=== PATIENT | female | born 1935 | race African-American/Black ===

== ENCOUNTER 2019-07-14 07:51 | Day surgery (SDC) | payer MEDICARE, MEDICAID ==
[2019-07-14] VITALS (8 sets, daily range): BP systolic 137–162; BP diastolic 63–78
[~2019-07-14] VITALS: Ht 167.6 cm; Wt 63.0 kg
[~2019-07-14 07:51] MED LIST: ACYCLOVIR200 MG/5 M ORAL; AMBIEN10 MG ORAL; CELLCEPT500 MG ORAL; NORVASC10 MG ORAL; ORENCIA IV; PRILOSEC OTC20 MG ORAL; TYLENOL EXTRA500 MG ORAL; XALATAN2.5 ML RIGHT EYE
[2019-07-14] MEDS ORDERED: LR 1000ml 1,000 ML IVLG SCH ×2 (09:00→09:25)
--- NOTE | 2019-07-14 09:28 | Anethesia Preoperative Eval ---
Anesthesia Pre-op PMH/ROS General Date of Evaluation: Jul 14, 2019 Time of Evaluation: 09:26 Anesthesiologist: josé miguel ASA Score: ASA 4 Mallampati Score Class I : Soft palate, uvula, fauces, pillars visible Class II: Soft palate, uvula, fauces visible Class III: Soft palate, base of uvula visible Class IV: Only hard plate visible Mallampati Classification: Class II Surgeon: sadiq Diagnosis: blood in stool, anemia Surgical Procedure: egd/colonoscopy Anesthesia History: none Family History: no anesthesia problems Allergies: Coded Allergies: No Known Allergies (Unverified , 07/12/19) Medications: see eMAR Patient NPO?: Yes Past Medical History Cardiovascular: Reports: HTN, other - syncope Pulmonary: Reports: asthma Gastrointestinal/Genitourinary: Reports: GERD, other - blood in stool HEENT: Reports: cataract (L), cataract (R), glaucoma, CHILKAT (L), CHILKAT (R) Hematology/Immune: Reports: anemia Musculoskeletal/Integumentary: Reports: OA - arthritic changes bilateral hands , other - bone cancer Anesthesia Pre-op Phys. Exam Physician Exam Last Vital Signs Date Time Temp Pulse Resp B/P (MAP) Pulse Ox O2 Delivery O2 Flow Rate FiO2 07/14/19 08:25 Room Air 07/14/19 08:20 96.7 65 18 137/65 98 Constitutional: NAD Neurologic: CN 2-12 intact Cardiovascular: RRR Respiratory: CTA Gastrointestinal: S/NT/ND Airway Exam Mallampati Score: Class II MO: limited Neck: flexible TMD: 2fb ROM: limited Anesthesia Pre-op A/P Risk Assessment & Plan Assessment: asa4 Plan: mac Status Change Before Surgery: No Pre-Antibiotics Drug: Renetta Edmond MD Jul 14, 2019 09:28
[2019-07-14] MEDS ORDERED: fentaNYL 100 mcg/2 mL IV PRN (09:30)
[2019-07-14] MEDS ORDERED: DiphenhydrAMINE 50mg/ml Inj IVP PRN (09:30)
[2019-07-14] MEDS ORDERED: Lidocaine 1% MPF 10mg/ml 5ml ONE (09:30)
[2019-07-14] MEDS ORDERED: Midazolam 2mg/2ml Inj IVP PRN (09:30)
[2019-07-14] MEDS ORDERED: Atropine Inj 1mg/10ml Syr IV PRN (09:30)
[2019-07-14] MEDS ORDERED: LR 1000ml ONE (09:30)
--- NOTE | 2019-07-14 10:08 | Short Stay Surgery H&P ---
History of Present Illness History of Present Illness Chief Complaint see typed note HPI Inessa Reese is a 84 year old female who was admitted on for Blood In Stool Patient History Allergies: Coded Allergies: No Known Allergies (Unverified , 07/12/19) Medication History Scheduled Acyclovir (Acyclovir), 200 MG ORAL BID, (Reported) Amlodipine Besylate (Norvasc), 10 MG ORAL DAILY, (Reported) Latanoprost* (Xalatan*), 1 DROP RIGHT EYE BEDTIME, (Reported) Mycophenolate Mofetil (Cellcept), 2,000 MG ORAL DAILY, (Reported) Omeprazole Magnesium (Prilosec Otc), 40 MG ORAL DAILY, (Reported) Orencia (Orencia 250 mg Vial), 750 MG IV ONCE, (Reported) Scheduled PRN Acetaminophen* (Tylenol Extra Strength*), 500 MG ORAL Q8H PRN for Prn Headache/ Temp > 101, (Reported) Zolpidem Tartrate* (Ambien*), 10 MG ORAL BEDTIME PRN for Insomnia, (Reported) Physical Exam Vital Signs Last Vital Signs Date Time Temp Pulse Resp B/P (MAP) Pulse Ox O2 Delivery O2 Flow Rate FiO2 07/14/19 08:25 Room Air 07/14/19 08:20 96.7 65 18 137/65 98 Plan Attestation Are the patient's medical conditions optimized for surgery? Juan Forbes MD Jul 14, 2019 10:08
--- NOTE | 2019-07-14 10:08 | Pre-Procedure Note/Attestation ---
Pre-Procedure Note/Attestation Complete Prior to Procedure Planned Procedure: not applicable Procedure Narrative: esophagogastroduodenoscopy colon Indications for Procedure Pre-Operative Diagnosis: heme (+) Attestation I attest that I discussed the nature of the procedure; its benefits; risks and complications; and alternatives (and the risks and benefits of such alternatives ), prior to the procedure, with the patient (or the patient's legal livestock sales representative). I attest that, if there was a reasonable possibility of needing a blood transfusion, the patient (or the patient's legal livestock sales representative) was given the [facility] standardized written summary, pursuant to the Arturo Marcelle Blood Safety Act ([place] Health and Safety Code # 1645, as amended). I attest that I re-evaluated the patient just prior to the surgery and that there has been no change in the patient's H&P, except as documented below: Juan Forbes MD Jul 14, 2019 10:08
--- NOTE | 2019-07-14 11:11 | Immediate Post-Op Evaluation ---
Immediate Post-Op Evalulation Immediate Post-Op Evalulation Procedure: egd/colonoscopy w/bx Date of Evaluation: Jul 14, 2019 Time of Evaluation: 11:10 IV Fluids: 650ml lr Blood Products: none Estimated Blood Loss: negligible Blood Pressure Systolic: 153 Blood Pressure Diastolic: 78 Pulse Rate: 68 Respiratory Rate: 18 O2 Sat by Pulse Oximetry: 100 Temperature (Fahrenheit): 96.7 Pain Score (1-10): 0 Nausea: No Vomiting: No Complications patient complain of chest pain upon arrival to pacu. 12 lead ecg obtained. no acute changes appreciated. chest pain resolved Patient Status: awake, reacts, patent Hydration Status: adequate Drug: Renetta Edmond MD Jul 14, 2019 11:11
--- NOTE | 2019-07-14 11:13 | 48 Hour Post Anesthesia Eval ---
Post Anesthesia Evaluation Procedure: egd/colonoscopy w/bx Date of Evaluation: Jul 14, 2019 Time of Evaluation: 11:12 Blood Pressure Systolic: 150 0: 70 Pulse Rate: 62 Respiratory Rate: 18 Temperature (Fahrenheit): 98.8 O2 Sat by Pulse Oximetry: 100 Airway: patent Nausea: No Vomiting: No Pain Intensity: 0 Hydration Status: adequate Cardiopulmonary Status: stable Mental Status/LOC: patient returned to baseline Post-Anesthesia Complications: none Follow-up care needed: N/A Renetta Boyer MD Jul 14, 2019 11:13
--- NOTE | 2019-07-15 18:00 | Operative Note - Dictated ---
DATE OF OPERATION: 07/14/2019 GASTROENTEROLOGY PROCEDURE PROCEDURE: Upper gastrointestinal endoscopy with biopsy as well as colonoscopy with snare polypectomy. SURGEON: Juan Forbes MD. ANESTHESIA: Please see the separate anesthesiologist notes for details. PRE-ENDOSCOPIC DIAGNOSES: Weight loss and abdominal pain and heme-positive stools. POST-ENDOSCOPIC DIAGNOSES: 1. A 1 to 2 cm hiatal hernia. 2. Status post random biopsies of the duodenum, antrum, lower esophagus, and mid esophagus. 3. Normal terminal ileum to about 10 cm, status post random biopsy. 4. Mild sigmoid diverticulosis. 5. A 1 cm sessile polyp in the rectum at 10 cm, status post hot snare polypectomy. 6. Internal hemorrhoids. DESCRIPTION OF PROCEDURE: The procedure, its risks, indications, alternatives, and possible complications were explained and an informed consent was obtained. The patient was then sedated in the left lateral decubitus position and a diagnostic upper endoscope was introduced through oropharynx and advanced to the duodenum. It was then removed and the colonoscope was introduced into the rectum and advanced to the terminal ileum. It was then removed. The findings were as reported in the above listing. The patient tolerated the procedure well and was left to recovery in good condition. COMPLICATIONS: None. ASSESSMENT: This patient has an incidental small hiatal hernia and a rectal polyp. There is also some diverticulosis, which was mild and internal hemorrhoids. The cause for heme-positive stools and her weight loss, however, is not identified. Biopsies will be evaluated to rule out microscopic disease and pathology. A discussion will then be held regarding a wireless capsule endoscopy to evaluate the small bowel. RECOMMENDATIONS: 1. Resume oral diet. 2. Follow up biopsy results. 3. Outpatient followup. Thank you for asking me to participate in the care of this patient. Juan Forbes M.D. DR: JOSE JOB#: [id number] CC: Candido Gonzalez M.D.; Fax#: [phone]
--- NOTE | 2019-07-16 07:16 | Endoscopy Procedure Note ---
Endoscopy Procedure Note General Indication for Procedure: heme (+) Procedures Performed: EGD, colonoscopy Operative Findings/Diagnosis: HH, rectal polyp, diverticulosis, hemorrhoids Specimen: yes Pt Tolerated Procedure Well: Yes Estimated Blood Loss: none Anesthesia Anesthesiologist: See report Anesthesia: MAC Medications Medication Given: see anesthesia record Inserted Devices Implant(s) used?: No GI Core Measures 50 yrs or older w/o bx or poly: Not Applicable 10yrs. F/U recommended: Not Applicable If not recommended, why?: Juan Forbes MD Jul 16, 2019 07:16
--- NOTE | 2019-07-16 07:17 | Brief Operative Note ---
Immediate Post Operative Note Operative Note Chief Complaint: Heme (+) stools Pre-op Diagnosis: heme (+) Procedure: EGD Colon Post-op Diagnosis: HH Tics Polyp rhoid Surgeon: sadiq Anesthesiologist: see report Anesthesia: moderate sedation Specimen: yes Complications: none Fluids: see report Implant(s) used?: No Juan Forbes MD Jul 16, 2019 07:17
== END 2019-07-14 12:10 | disposition home or self-care (01) ==
LOC: GAS 07:51
DX: R63.4 Abnormal weight loss (principal); R10.9 Unspecified abdominal pain; K62.5 Hemorrhage of anus and rectum; K44.9 Diaphragmatic hernia without obstruction or gangrene; K57.90 Diverticulosis of intestine, part unspecified, without perforation or abscess without bleeding; K63.5 Polyp of colon; K64.8 Other hemorrhoids; Z79.899 Other long term (current) drug therapy; I10 Essential (primary) hypertension; K21.9 Gastro-esophageal reflux disease without esophagitis; Z85.830 Personal history of malignant neoplasm of bone; K29.50 Unspecified chronic gastritis without bleeding; D12.7 Benign neoplasm of rectosigmoid junction
CPT/HCPCS: 43239; 45380; 45385; 94003; J2704; J7120; 94150

== ENCOUNTER 2019-07-21 13:24 | Emergency (ER) | payer MEDICARE, MEDICAID ==
[~2019-07-21] VITALS: Ht 167.6 cm; Wt 29.0 kg
[2019-07-21] MEDS ORDERED: Morphine Sulfate 2mg/ml Inj(IV/IM USE ONLY) IVP ONE (13:45)
--- NOTE | 2019-07-21 13:48 | Emergency Room Report ---
History of Present Illness General Chief Complaint: abdominal pain Source: Patient (Ganesh Cuevas DO) Present Illness HPI Patient presents with complaint of lower abdominal pain Patient had colonoscopy several days ago and reports that her pain has continued denies any chest pain or shortness of breath denies any vomiting denies any diarrhea she reports that she did take a colon cleanser previous to this Denies any flank pain denies any dysuria or frequency Pain is a cramping type pain does not recall having any blood in her stool (CosmedeidreGanesh FAN) Allergies: Coded Allergies: No Known Allergies (Unverified , 07/12/19) COVID-19 Screening Contact w/high risk pt: No Recent Travel to affected area: No Experienced COVID-19 symptoms?: No (Ganesh Cuevas DO) Patient History Past Medical History: see triage record Reviewed Nursing Documentation: PMH: Agreed; PSxH: Agreed (Ganesh Cuevas DO) Nursing Documentation-PMH Hx Cardiac Problems: Yes Hx Hypertension: Yes Hx Asthma: Yes Hx Cancer: Yes - "bone cancer and receiving chemo [place]" Hx Gastrointestinal Problems: Yes Hx Neurological Problems: Yes - syncopal episode 2016 (Ganesh Cuevas DO) Review of Systems All Other Systems: negative except mentioned in HPI (Ganesh Cuevas DO) Physical Exam 98% on RA Sp02 EP Interpretation: reviewed, normal General Appearance: well appearing, no apparent distress Head: normocephalic, atraumatic Eyes: bilateral eye PERRL, bilateral eye EOMI ENT: hearing grossly normal, normal pharynx, TMs + canals normal, uvula midline Neck: full range of motion, supple, no meningismus, no bony tend Respiratory: lungs clear, normal breath sounds, no rhonchi, no respiratory distress, no retraction, no accessory muscle use Cardiovascular #1: normal peripheral pulses, regular rate, rhythm, no edema, no gallop, no JVD, no murmur Gastrointestinal: normal bowel sounds, non tender - On palpation however the patient is pointing to the mid lower abdominal suprapubic region with bilateral radiation for the pain, soft, no mass, no organomegaly, non-distended, no guarding, no hernia, no pulsatile mass, no rebound Genitourinary: no CVA tenderness Musculoskeletal: normal inspection - However with 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 Laboratory studies showed no evidence of leukocytosis. CT scan of the abdomen pelvis demonstrated possible bowel wall thickening of the colon, suspected mild colitis versus diverticulosis or early diverticulitis. I discussed the results with Dr. Forbes, who felt patient stable for discharge home on course of oral antibiotics and he will follow-up with the patient. I agreed patient's pain was controlled on my assessment, abdomen nontender, stable for discharge with outpatient follow-up. She was agreeable and discharged with return precautions. (Cholo Ma M.D.) CT/MRI/US Diagnostic Results CT/MRI/US Diagnostic Results : Imaging Test Ordered: CT abdomen and pelvis Impression Impression: Limited assessment of the GI tract, due to lack of enteric contrast administration Colonic diverticulosis Mild wall thickening of the mid sigmoid colon, probably reflects circular muscular hypertrophy related to the diverticulosis. However, there is equivocal mild wall thickening of the distal descending colon which if real could indicate mild colitis changes. No other acute abnormality Evidence of prior cholecystectomy. Dilated extrahepatic bile ducts, likely related to age and postcholecystectomy state. Downstream obstruction not completely excludable and correlation with liver function tests is recommended. Cardiomegaly Other findings as noted, including pacemaker, degenerative spondylosis, dependent atelectatic pulmonary parenchymal changes, prior hysterectomy The CT scanner at [facility] is accredited by the [employer] and the scans are performed using protocols designed to limit radiation exposure to as low as reasonably achievable to attain images of sufficient resolution adequate for diagnostic evaluati (Cholo Ma M.D.) Disposition: HOME, SELF-CARE Condition: Improved Scripts Acetaminophen* (TYLENOL EXTRA STRENGTH*) 500 Mg Tablet 500 MG ORAL Q8H PRN for Prn Headache/Temp > 101, #30 TAB 0 Refills Prov: Cholo Ma M.D. 07/21/19 Metronidazole* (FLAGYL*) 500 Mg Tablet 500 MG ORAL THREE TIMES A DAY, #30 TAB Prov: Cholo Ma M.D. 07/21/19 Ciprofloxacin Hcl* (CIPROFLOXACIN HCL*) 500 Mg Tablet 500 MG ORAL Q12H, #20 TAB 0 Refills Prov: Cholo Ma M.D. 07/21/19 Ganesh Cuevas DO Jul 21, 2019 13:48 Cholo Ma M.D. Jul 21, 2019 16:42
[2019-07-21 14:16] VITALS: BP 134/65
[2019-07-21 14:31] LABS: BASOPHILS % (AUTO) 1.2 % (0.0-2.0); EOSINOPHILS % (AUTO) 1.8 % (0.0-3.0); HEMATOCRIT 41.8 % (37.0-47.0); HEMOGLOBIN 12.2 G/DL (12.0-16.0); LYMPHOCYTES % (AUTO) 28.3 % (20.0-45.0); MEAN CORPUSCULAR VOLUME 100 FL (80-99); MONOCYTES % (AUTO) 8.7 % (1.0-10.0); PLATELET COUNT 169 K/UL (150-450); RED BLOOD COUNT 4.18 M/UL (4.20-5.40); RED CELL DISTRIBUTION WIDTH 15.2 % (11.6-14.8); WHITE BLOOD COUNT 3.6 K/UL (4.8-10.8)
[2019-07-21 14:37] LABS: ANION GAP 8 mmol/L (5-15); BLOOD UREA NITROGEN 14 mg/dL (7-18); CALCIUM 8.7 MG/DL (8.5-10.1); CARBON DIOXIDE 26 MMOL/L (21-32); CHLORIDE 109 MMOL/L (98-107); CREATININE 0.8 MG/DL (0.55-1.30); POTASSIUM 4.2 MMOL/L (3.5-5.1); SODIUM 143 MMOL/L (136-145)
[2019-07-21 14:42] LABS: ALANINE AMINOTRANSFERASE 19 U/L (12-78); ALBUMIN 3.2 G/DL (3.4-5.0); ALBUMIN/GLOBULIN RATIO 1.2 (1.0-2.7); ALKALINE PHOSPHATASE 63 U/L (46-116); ASPARTATE AMINO TRANSFERASE 17 U/L (15-37); BILIRUBIN,TOTAL 0.2 MG/DL (0.2-1.0)
[2019-07-21] MEDS ORDERED: METOPROLOL TART50 M1 ORAL (14:55)
[2019-07-21 15:37] LABS: APPEARANCE,URINE CLEAR; BILIRUBIN, URINE NEGATIVE (NEGATIVE); GLUCOSE, URINE (UA) NEGATIVE (NEGATIVE); KETONES,URINE NEGATIVE (NEGATIVE); LEUKOCYTE ESTERASE ,URINE 1+ (NEGATIVE); NITRITE,URINE NEGATIVE (NEGATIVE); PH,URINE 5 (4.5-8.0); PROTEIN,URINE NEGATIVE (NEGATIVE); UROBILINOGEN,URINE 1 MG/DL (0.0-1.0)
[2019-07-21 15:43] LABS: COLOR,URINE YELLOW
--- NOTE | 2019-07-21 16:02 | Diagnostic Imaging Report ---
Indication: Or abdominal pain, after colonoscopy Technique: Spiral acquisitions obtained through the abdomen and pelvis. No oral contrast utilized, per emergency room physician request No IV contrast utilized, per referring physician request.. Multiplanar reconstructions were generated. Total dose length product 234 mGycm. CTDIvol(s) 4 mGy. Dose reduction achieved using automated exposure control Comparison: None Findings: Lack of enteric contrast limits assessment of the GI tract. There are colonic diverticula. There is very mild wall thickening of the mid sigmoid colon, probably circular muscle hypertrophy related to the diverticulosis. There is also slight wall thickening of the distal descending colon. Moderate retained stool is seen within the proximal colon. The appendix is not definitely visualized, but no findings to suggest acute appendicitis are evident. No small bowel distention. No free or loculated intraperitoneal gas or fluid is evident. The distal esophagus, stomach, duodenum are unremarkable. Lack of IV contrast limits assessment of the solid organs. The gallbladder has been removed. The extra hepatic bile ducts are dilated, common bile duct measuring up to 15 mm in diameter. The liver, pancreas, spleen, adrenals, kidneys are unremarkable. No retroperitoneal or mesenteric mass or adenopathy. The uterus is absent. No pelvic mass or adenopathy. The included lung bases demonstrate posterior dependent atelectatic changes. The heart is enlarged. Pacemaker wires are seen within the heart. The bones demonstrate degenerative spondylosis changes. Impression: Limited assessment of the GI tract, due to lack of enteric contrast administration Colonic diverticulosis Mild wall thickening of the mid sigmoid colon, probably reflects circular muscular hypertrophy related to the diverticulosis. However, there is equivocal mild wall thickening of the distal descending colon which if real could indicate mild colitis changes. No other acute abnormality Evidence of prior cholecystectomy. Dilated extrahepatic bile ducts, likely related to age and postcholecystectomy state. Downstream obstruction not completely excludable and correlation with liver function tests is recommended. Cardiomegaly Other findings as noted, including pacemaker, degenerative spondylosis, dependent atelectatic pulmonary parenchymal changes, prior hysterectomy The CT scanner at [facility] is accredited by the [employer] and the scans are performed using protocols designed to limit radiation exposure to as low as reasonably achievable to attain images of sufficient resolution adequate for diagnostic evaluation.
[2019-07-21 16:17] VITALS: BP 130/64
[2019-07-21] MEDS ORDERED: TYLENOL EXTRA500 MG ORAL (16:26)
[2019-07-21] MEDS ORDERED: METRONIDAZOLE500 MG ORAL (16:26)
[2019-07-21] MEDS ORDERED: CIPROFLOXACIN500 M2 ORAL (16:26)
[2019-07-21 16:32] VITALS: BP 124/76
== END 2019-07-21 16:37 | disposition home or self-care (01) ==
LOC: EMR 14:05 → EDBEDREQ 14:10 → CANBEDREQ 16:27 → EMR 16:37
DX: K57.32 Diverticulitis of large intestine without perforation or abscess without bleeding (principal); R10.33 Periumbilical pain; I10 Essential (primary) hypertension; J45.909 Unspecified asthma, uncomplicated; C41.9 Malignant neoplasm of bone and articular cartilage, unspecified; Z92.21 Personal history of antineoplastic chemotherapy
CPT/HCPCS: 36415; 74176; 80053; 81003; 83690; 85025; 96374; 96375; 99284; J2270; J2405; J7040